=== PATIENT | male | born 1995 | race Caucasian/White ===

== ENCOUNTER 2018-04-28 08:07 | Emergency (ER) | payer OTHER ==
[~2018-04-28] VITALS: Ht 193 cm; Wt 72.6 kg
[2018-04-28 08:10] VITALS: BP 155/79
--- NOTE | 2018-04-28 08:14 | NUR ---
Patient ambulated to bed 6. RN evaluating patient at bedside.
--- NOTE | 2018-04-28 08:16 | NUR ---
REPORT GIVEN TO KONG MAZA
--- NOTE | 2018-04-28 08:23 | NUR ---
23 YO M TO ER FOR R TESTICULAR PAIN X2 DAYS. PT STATS INCREASING PAIN IN PAST 24 HRS. -SWELLING. - REDNESS. TENDER TO TOUCH. 4/10 PAIN, WITH NASEUA. PT DEIES ANY V/D, ABD PAIN. ER MD MADE AWARE, WILL CONTINUE TO MONITOR
--- NOTE | 2018-04-28 08:24 | NUR ---
Dr. Hurley evaluating patient at bedside.
--- NOTE | 2018-04-28 08:25 | NUR ---
Patient being evaluated by physician at bedside.
[2018-04-28] MEDS ORDERED: KETOROLAC 60 MG/2 ML VIAL IM ONE (08:40)
--- NOTE | 2018-04-28 09:04 | NUR ---
MEDS ADMINISTERED BY [facility] STUDENT WITH INSTRUCTOR AT BEDSIDE.
--- NOTE | 2018-04-28 09:05 | NUR ---
ULTRASOUND AT BEDSIDE
[2018-04-28 09:39] VITALS: BP 150/80
== END 2018-04-28 09:39 | disposition home or self-care (01) ==
LOC: MED 08:07
DX: N50.3 Cyst of epididymis (principal); R03.0 Elevated blood-pressure reading, without diagnosis of hypertension
CPT/HCPCS: 76870; 96372; 99284; J1885; Q0092